=== PATIENT | male | born 1950 | race Caucasian/White ===

== ENCOUNTER → 2024-11-03 | Outpatient (CLI) | payer MEDICARE ==
[~2024-11-03] MED LIST: CEPH500C2 PO; TAMS-55 PO
[2024-11-03 09:56] LABS: BASOPHILS # (AUTO) 0.08 K/uL (0.00-0.20); EOSINOPHILS # (AUTO) 0.26 K/uL (0.00-0.70); EOSINOPHILS % (AUTO) 3.4 % (0.0-8.0); HEMATOCRIT 42.9 % (42-54); IMMATURE GRANULOCYTE ABSOLUTE 0.05 K/uL (0-1); LYMPHOCYTES # (AUTO) 2.2 K/uL (1.0-4.8); LYMPHOCYTES % (AUTO) 28.7 % (21.0-51.0); MEAN CORPUSCULAR HEMOGLOBIN 30.4 pg (27.0-33.0); MEAN CORPUSCULAR HGB CONC 32.9 g/dL (32.0-36.0); MEAN CORPUSCULAR VOLUME 92.5 fL (79-99); MONOCYTES # (AUTO) 1.2 K/uL (0.1-1.0); MONOCYTES % (AUTO) 15.9 % (3.0-13.0); NEUTROPHILS # (AUTO) 3.9 K/uL (1.8-7.7); NEUTROPHILS % (AUTO) 50.4 % (40.0-77.0); PLATELET COUNT (AUTO) 306 K/uL (130-400); RED BLOOD CELL COUNT(AUTO) 4.64 MIL/uL (4.50-6.20); RED CELL DISTRIBUTION WIDTH 12.5 % (11.0-15.5); WHITE BLOOD COUNT (AUTO) 7.7 K/uL (4.8-10.8)
[2024-11-03 11:33] LABS: CREATININE 1.2 mg/dL (0.5-1.3); POTASSIUM 4.4 mmol/L (3.5-5.1)
== END | disposition home or self-care (01) ==
LOC: RAH 09:24
PROVIDERS: ATTEND Urology
DX: R31.0 Gross hematuria (principal)
CPT/HCPCS: 36415; 80048; 85025

== ENCOUNTER → 2024-11-06 | Outpatient (CLI) | payer MEDICARE ==
[~2024-11-06] MED LIST changes: +IOHEXOL 350 MG/ML 100ML INFUS..BTL IV ONE
--- NOTE | 2024-11-06 13:19 | HMCIMG ---
Exam Type: CT UROGRAM (ABD/PEL WWO) Clinical Information: GORSS HEMATURIA Comparison: None Contrast: 100 cc's Isovue 370 IV, no complications or adverse reactions CT Dose Index (CTDI): 31.60 mGy Dose Length Product (DLP): 1740.80 total mGy-cm Findings: No evidence of nephro or ureterolithiasis is found. No hydronephrosis or ureteral dilatation is seen. CT urogram demonstrates normal appearance of the kidneys throughout, in all phases of imaging. No masses. No areas of infection or inflammation seen. Ureters are unremarkable. The lung bases are clear. The stomach is unremarkable. It shows no wall thickening. No gross ulceration is seen. It is not overly distended. There are no surrounding inflammatory changes. No wall lesions are identified to suggest cancer. The spleen is unremarkable. It is not enlarged. The pancreas shows normal anatomy. It is not fatty replaced. It shows no lesions. The pancreatic duct is not dilated. The gallbladder is unremarkable. It shows no cholelithiasis. The gallbladder wall is normal in thickness. There is no pericholecystic fluid. The is no acute or chronic inflammation noted. The adrenal glands are unremarkable. There is no enlargement. No lesions are noted. The liver is unremarkable. It shows no focal masses. The appendix is unremarkable. It shows no evidence of inflammation. No appendicolith is seen. The small bowel is unremarkable. There is no evidence of dilatation to suggest obstruction. No evidence of adynamic ileus is seen. There is no small bowel wall thickening to suggest enteritis. The colon is unremarkable. The gallbladder is abnormal, it is distended and demonstrates a thickened irregular wall and these findings are consistent with chronic bladder outlet obstruction. No calculi or masses seen. The prostate is significantly enlarged. There are bilateral inguinal hernias containing only minimal fluid. No bowel contents. The bony and vascular structures are unremarkable for the patient's age. IMPRESSION: Urinary bladder findings suggestive of chronic bladder outlet obstruction. This study was performed using dose reduction techniques to include automated exposure control and/or adjustment of the mA and/or kV according to patient size.
== END | disposition home or self-care (01) ==
LOC: RAH 10:00
PROVIDERS: ATTEND Urology
DX: N40.0 Benign prostatic hyperplasia without lower urinary tract symptoms (principal); K40.20 Bilateral inguinal hernia, without obstruction or gangrene, not specified as recurrent; K82.8 Other specified diseases of gallbladder; R31.0 Gross hematuria
CPT/HCPCS: 74178; Q9967